=== PATIENT | female | born 1970 | race Hispanic/Latino ===

== ENCOUNTER 2018-07-02 09:04 | Outpatient (CLI) | payer OTHER ==
--- NOTE | 2018-07-02 11:36 | ULT ---
LIMITED LEFT BREAST ULTRASOUND: Date: 07-02-18 Provided Clinical History: Abnormal mammogram. FINDINGS: Limited sonographic interrogation was performed of the left breast at the 11 and 3 o'clock positions in the regions of mammographic concern. At the 11 o'clock position there is a simple cyst measuring about 1.4 cm corresponding to the mammogr aphic finding. At the 3 o'clock position there is a 1 cm simple cyst corresponding to the mammogram finding. In charisma tion, there is a 7 mm circumscribed oval hypoechoic mass adjacent to the simple cyst which may reflec t a debris filled fibroadenoma. Other etiologies are not excluded. IMPRESSION: BIRADS category 3 - probably benign findings. 6 month follow up left breast ultrasound is recommended for the 7 mm 3 o'clock left breast mass. POS: OFF
--- NOTE | 2018-07-02 11:37 | ULT ---
LIMITED RIGHT BREAST ULTRASOUND: Date: 07-02-18 Provided Clinical History: Right breast palpable abnormality. FINDINGS: Limited sonographic interrogation was performed of the right breast in the region of palpable concern . There is a 3.4 cm simple cyst, corresponding to the palpable abnormality. No concerning findings ar e evident. IMPRESSION: BIRADS category 2 - benign findings. 6 month follow up left breast ultrasound is recommended for find ings seen on the left breast ultrasound. Please see that report. POS: OFF
== END 2018-07-02 09:05 | disposition home or self-care (01) ==
LOC: BICMAMMO 09:04
PROVIDERS: ATTEND Family Medicine
DX: N63.0 Unspecified lump in unspecified breast (principal)
CPT/HCPCS: 77066; G0279